=== PATIENT | female | born 1965 | race Caucasian/White ===

== ENCOUNTER 2022-03-30 08:57 | Outpatient (CLI) | payer OTHER, SELFPAY ==
[2022-03-30 09:17] LABS: Hematocrit 40.3 % (35.0-49.0); Mean Corpuscular HGB Conc 32.3 g/dL (32.0-36.0); Mean Corpuscular Hemoglobin 31.6 pg (27.0-31.0); Mean Corpuscular Volume 97.8 fL (78.0-102.0); Mean Platelet Volume 10.4 fl (9.2-11.8); Platelet Count Result 165 K/mm3 (150-420); Red Blood Count 4.12 M/mm3 (4.20-5.40); Red Cell Distribution Width 12.2 % (11.6-14.4); White Blood Count 3.4 K/mm3 (4.8-10.8)
[2022-03-30 10:37] LABS: Band Neutrophils Percent 0 % (0-6); Basophils Percent Manual 0 % (0-1); Eosinophils Absolute Manual 0.03 K/mm3 (0.02-0.5); Eosinophils Percent Manual 1 % (1-6); Lymphocytes Absolute Manual 1.53 K/mm3 (1.1-4.5); Lymphocytes Percent Manual 45 % (18-44); Monocytes Absolute Manual 0.13 K/mm3 (0.1-0.90); Monocytes Percent Manual 4 % (3-9); Neutrophils Percent Manual 50 % (46-73); Platelet Estimate Adequate (Adequate); Total Cells Counted 100
[2022-04-02 10:41] LABS: Sex Hormone Binding Globulin 47 nmol/L (17-124)
[2022-04-02 15:25] LABS: FSH 92.7 mIU/mL (***)
[2022-04-04 17:14] LABS: Testosterone Free 2.5 pg/mL (0.1-6.4); Testosterone Total 32 ng/dL (2-45)
[2022-04-05 22:56] LABS: Estradiol, Ultrasensitive 5 pg/mL
== END 2022-03-30 08:58 | disposition home or self-care (01) ==
LOC: CHSLAB 09:01
PROVIDERS: PCP Registered Nurse; Visit Provider Registered Nurse
DX: R23.2 Flushing (principal)
CPT/HCPCS: 36415; 82670; 83001; 84270; 84402; 84403; 84443; 85025